=== PATIENT | male | born 1975 | race African-American/Black ===

== ENCOUNTER 2018-12-15 10:53 | Emergency (ER) | payer BC, OTHER ==
[~2018-12-15] VITALS: Ht 175.3 cm; Wt 83.9 kg
[~2018-12-15 10:53] MED LIST: AZITHROMYCIN250 MG ORAL
[2018-12-15 11:08] VITALS: BP 155/91
[2018-12-15] MEDS ORDERED: NKM (11:08)
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
[2018-12-15] MEDS ORDERED: Ketorolac 60mg Inj IM ONE (11:30)
--- NOTE | 2018-12-15 11:38 | NUR ---
ED Nurse Note: pt refused pain medication, pt stated he feels weird when he took pain medication, offered motrin but pt stated he doesnt want any pain meds, he just want to be check if there is a fracture on his neck.ermd made aware. pt went to xray with tech.
--- NOTE | 2018-12-15 11:44 | NUR ---
ED Nurse Note: pt went back from xray with tech
--- NOTE | 2018-12-15 12:10 | Diagnostic Imaging Report ---
EXAM: CT Cervical Spine Without Intravenous Contrast CLINICAL HISTORY: PAIN TECHNIQUE: Axial computed tomography images of the cervical spine without intravenous contrast. CTDI is 12.24 mGy and DLP is 270.42 mGy-cm. One or more of the following dose reduction techniques were used: automated exposure control, adjustment of the mA and/or kV according to patient size, use of iterative reconstruction technique. COMPARISON: None FINDINGS: Bones: Straightening of the normal cervical lordosis. No acute fracture or bony lesion. Disc spaces: No subluxation. Degenerative changes of the spine. Soft tissues: Normal. Other: Small scattered lymph nodes are likely reactive. IMPRESSION: No acute traumatic abnormality.
--- NOTE | 2018-12-15 12:16 | Diagnostic Imaging Report ---
EXAM: CT Lumbar Spine Without Intravenous Contrast CLINICAL HISTORY: PAIN TECHNIQUE: Axial computed tomography images of the lumbar spine without intravenous contrast. CTDI is 14.28 mGy and DLP is 431.32 mGy-cm. One or more of the following dose reduction techniques were used: automated exposure control, adjustment of the mA and/or kV according to patient size, use of iterative reconstruction technique. COMPARISON: None FINDINGS: Bones: Normal alignment. No acute fracture or bony lesion. Lumbosacral transitional anatomy. Disc spaces: No subluxation. Mild disc bulges that L3-4 and L4-5, causing borderline spinal canal stenosis. Moderate to severe bilateral neural foraminal stenoses at L2-3, L3-4, and L4-5. Soft tissues: Normal. Other: Normal appendix. IMPRESSION: 1. No acute fracture identified. 2. Moderate to severe bilateral neural foraminal stenoses at L2-3, L3- 4, and L4-5.
[2018-12-15] MEDS ORDERED: CYCLOBENZAPRINE10 MG ORAL (12:29)
[2018-12-15 12:35] VITALS: BP 122/78
--- NOTE | 2018-12-15 12:35 | NUR ---
ER DISCHARGE NOTE: Patient is cleared to be discharged per ERMD, pt is aox4, on room air, with stable vital signs. pt was given dc and prescription instructions, pt was able to verbalize understanding, pt id band removed without complications. pt is able to ambulate with steady gait. pt took all belongings.
== END 2018-12-15 12:35 | disposition home or self-care (01) ==
LOC: EMR 11:40
DX: S16.1XXA Strain of muscle, fascia and tendon at neck level, initial encounter (principal); M48.061 Spinal stenosis, lumbar region without neurogenic claudication; V49.9XXA Car occupant (driver) (passenger) injured in unspecified traffic accident, initial encounter; Y92.410 Unspecified street and highway as the place of occurrence of the external cause
CPT/HCPCS: 72125; 72131; 99284